=== PATIENT | male | born 1940 | race Caucasian/White ===

== ENCOUNTER 2018-01-14 21:43 | Emergency (ER) | payer OTHER ==
[~2018-01-14] VITALS: Ht 180.3 cm; Wt 91.5 kg
[2018-01-14 22:18] LABS: HEMATOCRIT 45.1 % (38.0-50.0); HEMOGLOBIN 15.6 G/DL (12.5-16.6); MCH 31.1 PG (29.0-34.0); MCHC 34.6 G/DL (30.0-36.0); MCV 89.8 FL (86-99); PLATELET COUNT 192 K/uL (156-360); RBC DIS.WIDTH-CV 13.1 % (11.8-14.6); RED BLOOD COUNT 5.02 M/uL (4.00-5.50); WHITE BLOOD COUNT 15.6 K/uL (4.1-10.2)
[2018-01-14 22:26] LABS: CHLORIDE 102 mEq/L (99-109); SODIUM 135 mEq/L (136-147)
[2018-01-14 22:28] LABS: GLUCOSE 126 mg/dL (70-99)
[2018-01-14 22:32] LABS: CREATININE 0.9 mg/dL (0.6-1.3)
[2018-01-14 22:33] LABS: GFR ESTIMATE (CALCULATED) > 59 mL/min/ (58.99-99999); UREA NITROGEN (BUN) 16 mg/dL (9-23)
[2018-01-14 22:40] LABS: TROP-I INTERPRETATION NEGATIVE; TROPONIN-I < 0.01 ng/mL (0.0-0.30)
[2018-01-14] MEDS ORDERED: AZITHROMYCIN250 MG1 PO (22:42)
[2018-01-14 22:55] VITALS: BP 187/110
== END 2018-01-14 23:29 | disposition home or self-care (01) ==
LOC: EME 21:43
PROVIDERS: Emergency Medicine Emergency Medical Services
DX: J18.9 Pneumonia, unspecified organism (principal); I45.4 Nonspecific intraventricular block; R94.31 Abnormal electrocardiogram [ECG] [EKG]; I10 Essential (primary) hypertension; E78.5 Hyperlipidemia, unspecified; Z79.82 Long term (current) use of aspirin; Z87.891 Personal history of nicotine dependence; Z85.828 Personal history of other malignant neoplasm of skin
CPT/HCPCS: 71045; 80048; 84484; 85027; 93005; 99281; 99284

== ENCOUNTER 2018-01-30 16:47 | Emergency (ER) | payer OTHER ==
[~2018-01-30] VITALS: Ht 180.3 cm; Wt 92.9 kg
[~2018-01-30 16:47] MED LIST: AZITHROMYCIN250 MG1 PO
[2018-01-30 18:26] LABS: ALBUMIN 3.6 g/dL (3.2-4.8); CHLORIDE 104 mEq/L (99-109); POTASSIUM 4.5 mEq/L (3.7-5.4); SODIUM 137 mEq/L (136-147)
[2018-01-30 18:27] LABS: MAGNESIUM 1.8 mg/dL (1.3-2.7)
[2018-01-30 18:29] LABS: GLUCOSE 101 mg/dL (70-99); TOTAL PROTEIN 6.5 g/dL (6.4-8.3)
[2018-01-30 18:30] LABS: TOTAL BILIRUBIN 0.6 mg/dL (0.0-1.0)
[2018-01-30 18:31] LABS: SERUM ETHYL ALCOHOL < 10 mg/dL
[2018-01-30 18:32] LABS: ALKALINE PHOSPHATASE 47 IU/L (3-129); GFR ESTIMATE (CALCULATED) > 59 mL/min/ (58.99-99999)
[2018-01-30 18:33] LABS: UREA NITROGEN (BUN) 26 mg/dL (9-23)
[2018-01-30 18:34] LABS: AST (GOT) 17 IU/L (2-34)
[2018-01-30 18:35] LABS: ALT (GPT) 23 IU/L (3-49); CREATINE KINASE 43 IU/L (1-294); TOTAL CK 43 IU/L (1-294)
[2018-01-30 18:39] LABS: BASOPHIL (%) 0.2 % (0-1); EOSINOPHIL (%) 1.2 % (0-5); EOSINOPHIL COUNT 0.2 K/uL (0-0.3); HEMATOCRIT 36.9 % (38.0-50.0); IMMATURE GRANULOCYTE (%) 0.4 % (0.0-0.7); LYMPHOCYTE (%) 9.3 % (15-42); LYMPHOCYTE COUNT 1.3 K/uL (1.0-2.8); MCHC 34.1 G/DL (30.0-36.0); MCV 90.9 FL (86-99); MONOCYTE (%) 13.1 % (3-12); MONOCYTE COUNT 1.8 K/uL (0-0.8); NEUTROPHIL (%) 75.8 % (45-76); NEUTROPHIL COUNT 10.4 K/uL (1.8-6.4); RBC DIS.WIDTH-CV 13.8 % (11.8-14.6); RBC DIS.WIDTH-SD 46.5 % (39-53); RED BLOOD COUNT 4.06 M/uL (4.00-5.50); WHITE BLOOD COUNT 13.7 K/uL (4.1-10.2)
[2018-01-30 18:40] LABS: HEMOGLOBIN 12.6 G/DL (12.5-16.6); PLATELET COUNT 251 K/uL (156-360)
[2018-01-30 18:41] LABS: CKMB RELATIVE INDEX 2.3 (0.0-3.9)
[2018-01-30 18:42] LABS: TROP-I INTERPRETATION NEGATIVE; TROPONIN-I 0.01 ng/mL (0.0-0.30)
[2018-01-30 21:10] VITALS: BP 150/85
== END 2018-01-30 21:19 | disposition home or self-care (01) ==
LOC: EME 16:47
PROVIDERS: Emergency Medicine
DX: R07.89 Other chest pain (principal); J81.1 Chronic pulmonary edema; E78.5 Hyperlipidemia, unspecified; I10 Essential (primary) hypertension; Z87.891 Personal history of nicotine dependence
CPT/HCPCS: 71275; 80053; 82550; 82553; 83735; 83880; 84484; 85025; 93005; 99281; 99284; G0480; J7120